=== PATIENT | male | born 1990 | race Caucasian/White ===

== ENCOUNTER 2017-11-06 10:25 | Emergency (ER) | payer MEDICAID ==
--- NOTE | 2017-11-06 12:55 | EDPHY ---
H & P Time Seen by Provider: 11/06/17 10:54 HPI/ROS: CHIEF COMPLAINT: Back pain HISTORY OF PRESENT ILLNESS: 27-year-old male presents to the emergency department with mid to low back pain. Patient denies any known trauma or injury. He states last evening he was sitting on his front porch smoking a cigarette any felt pain in his back. Pain is worse with movement. He denies feeling short of breath. Denies any other pain in his chest. Denies abdominal pain. He took 3 aspirin prior to arrival with relief. Denies any other trauma or injury. Denies radicular symptoms. He does not feel weak in his legs. Denies paresthesias. REVIEW OF SYSTEMS: Constitutional: No fever, no chills. Eyes: No double or blurry vision. ENT: No sore throat. Respiratory: No cough, no shortness of breath. Cardiac: No chest pain. Gastrointestinal: No abdominal pain, vomiting or diarrhea. Genitourinary: No dysuria. Musculoskeletal: Back pain as above. No neck pain. Skin: No rashes. Neurological: No headache. Past Medical/Surgical History: Negative Social History: Smoking Status: Current every day smoker Physical Exam: General Appearance: Alert, no distress. Eyes: Pupils equal and round. Extraocular motions are all intact. ENT: Mouth: Mucous membranes moist. Respiratory: No wheezing, rhonchi, or rales, lungs are clear to auscultation. Cardiovascular: Regular rate and rhythm. Gastrointestinal: Abdomen is soft and nontender, no masses, no rebound or guarding, bowel sounds normal. Neurological: Alert and oriented x 3, cranial nerves II through XII grossly intact Skin: Warm and dry, no rashes. Musculoskeletal: Patient has reproducible pain with palpation to the lower thoracic and upper lumbar spine. No palpable crepitus or other bony abnormality. Straight leg raise is negative bilaterally. The patient has reproducible pain all as well as when he tries to sit upright from a lying supine position. He has pain with laterally bending. Again reproducible pain with palpation. Extremities: Full range of motion and no peripheral edema. Psychiatric: Patient is oriented X 3, there is no agitation. Constitutional: Initial Vital Signs Temperature (C) 36.4 C 11/06/17 10:28 Heart Rate 63 11/06/17 10:28 Respiratory Rate 18 11/06/17 10:28 Blood Pressure 117/66 07/03/18 10:28 O2 Sat (%) 96 11/06/17 10:28 O2 Delivery Mode Room Air Allergies/Adverse Reactions: No Known Allergies Allergy (Unverified 11/06/17 10:28) Home Medications: Medication Instructions Recorded Aspirin 11/06/17 Medical Decision Making - Diagnostics Imaging Results: Imaging Impressions Thoracolumbar Spine 11/06/17 11:24 Impression: Unremarkable x-ray. Chest X-Ray 11/06/17 11:28 Impression: Possible airways disease. No obvious thoracic spine abnormality identified. Is there any wheezing? Imaging: I viewed and interpreted images myself ED Course/Re-evaluation: The case was discussed with Dr. Mayank Mcgrath, secondary supervising physician, who did not directly evaluate the patient but agrees with treatment and plan. He did not recommend muscle relaxers. Patient has a back pain which is worse with movement as well as reproducible tenderness. X-rays are normal. Chest x-ray was obtained since he is slender and smoker to exclude pneumothorax. This was normal. He was encouraged to use anti-inflammatory such as ibuprofen. He did improve after using aspirin. He is also given primary care referral. Instructed to return if he has any change in symptoms or feels worse. Differential Diagnosis: Back pain including but not limited to muscular pain, herniated disc, spine fracture, intra-abdominal causes and urinary tract infection. - Data Points Laboratory Results: 11/06/17 11:40 Urine Color PALE YELLOW Urine Appearance CLEAR Urine pH 8.0 H (5.0-7.5) Ur Specific [place] 1.003 (1.002-1.030) Urine Protein NEGATIVE (NEGATIVE) Urine Ketones NEGATIVE (NEGATIVE) Urine Blood NEGATIVE (NEGATIVE) Urine Nitrate NEGATIVE (NEGATIVE) Urine Bilirubin NEGATIVE (NEGATIVE) Urine Urobilinogen NEGATIVE EU EU (0.2-1.0) Ur Leukocyte Esterase NEGATIVE (NEGATIVE) Urine RBC 1-3 /hpf /hpf (0-3) Urine WBC 0-1 /hpf /hpf (0-3) Ur Epithelial Cells NONE SEEN /lpf /lpf (NONE-1+) Urine Mucus TRACE /lpf /lpf (NONE-1+) Urine Glucose NEGATIVE (NEGATIVE) Departure - Departure Disposition: Home, Routine, Self-Care Clinical Impression: Back pain Qualifiers: Back pain location: thoracic back pain Chronicity: acute Back pain laterality: midline Qualified Code(s): M54.6 - Pain in thoracic spine Condition: Good Instructions: Back Pain (ED) Additional Instructions: Ibuprofen 600 mg every 8 hr as needed for pain. Lidocaine patch, over the counter, for pain as directed. Activity as tolerated. You should stop smoking cigarettes. Return to the emergency department if you develop numbness or tingling in your toes, feelings of weakness in your upper or lower extremities, increasing pain, or if you feel worse in any way. Referrals: Mainor Mckinney DO [Doctor of Osteopathy] - 2-3 days without fail (Primary care provider cell phone repair technician)
[2017-11-06 13:12] VITALS: BP 106/67
== END 2017-11-06 13:11 | disposition home or self-care (01) ==
DX: M54.6 Pain in thoracic spine (principal); F17.210 Nicotine dependence, cigarettes, uncomplicated; Z79.82 Long term (current) use of aspirin